=== PATIENT | female | born 1960 | race Hispanic/Latino ===

== ENCOUNTER 2018-01-02 22:20 | Emergency (ER) | payer OTHER ==
[~2018-01-02] VITALS: Ht 160 cm; Wt 100.7 kg
[~2018-01-02 22:20] MED LIST: BYSTOLIC5 MG PO
--- OUTSIDE RECORDS SUMMARY | 2018-01-02 22:23 | XMS REPORT ---
[facility] Address Unknown Phone Unavailable Care Team Providers Care Wagon Driver Name Role Phone Jim IRENEDaniela Unavailable Unavailable REGINA, ABDON Unavailable Unavailable Problems This patient has no known problems. Allergies, Adverse Reactions, Alerts This patient has no known allergies or adverse reactions. Medications This patient has no known medications. Results Test Description Test Time Test Comments Text Results Atomic Results Result Comments CT BRAIN WO [place] [address] Patient Name: SO HATCH MR #: [id number] : 1960 Age/Sex: 56/F Req #: [id number] Adm Physician: Ordered by: CAIT TALBERT MD Report #: [id number] Location: ER Room/Bed: Procedure: [id number] CT/CT BRAIN WO Exam Date: 01/07/17 Exam Time: 1999 REPORT STATUS: Signed History: Dizziness Comparison studies: None Technique: Axial images were obtained from the skull base to the vertex. Coronal and sagittal reconstructions obtained from the axial data. Findings: Scalp/skull: No abnormalities. No fractures, blastic or lytic lesions. Extra-axial spaces: No masses. No fluid collections. Brain sulci: Appropriate for age. Ventricles: Normal in size and configuration. No hydrocephalus. Parenchyma: No abnormal densities. No masses, hemorrhage, acute or chronic cortical vascular insults. Sellar/suprasellar region: No abnormalities Craniocervical junction: Patent foramen magnum. No Chiari one malformation. IMPRESSION: No abnormalities . Signed by: DR Marquise Morrissey M.D. on 01/07/2017 8:30 PM Dictated By: MARQUISE ENGLISH MD 29 Transcribed By: LEONIDAS on 01/07/172029 COPY TO: CAIT TALBERT MD CHEST SINGLE (PORTABLE) [place] [address] Patient Name: SO HATCH MR #: [id number] : 1960 Age/Sex: 56/F Req #: [id number] Adm Physician: Ordered by: CAIT TALBERT MD Report #: [id number] Location: ER Room/Bed: Procedure: [id number] DX/CHEST SINGLE (PORTABLE) Exam Date: 01/07/17 Exam Time: 1999 REPORT STATUS: Signed EXAM: CHEST SINGLE (PORTABLE), AP 1 view DATE: 01/07/2017 7:21 PM Time stamp on exam: 1834 hours INDICATION: Shortness of breath, dizziness COMPARISON: AP view of the chest August 05, 2013 FINDINGS: LINES/TUBES: None LUNGS: No consolidations or edema. PLEURA: No effusions or pneumothorax. HEART AND MEDIASTINUM: Normal size and contour. BONES AND SOFT TISSUES: No acute findings. IMPRESSION: No acute thoracic abnormality. Signed by: Dr. Chioma Corral M.D. on 01/07/2017 8:04 PM Dictated By: CHIOMA CORRAL MD 03 Transcribed By: LEONIDAS on 01/07/172003 COPY TO: CAIT TALBERT MD BONE DXA DUAL ENERGY [place] [address] Patient Name: SO HATCH MR #: [id number] : 1960 Age/Sex: 56/F Req #: [id number] Adm Physician: Ordered by: ABDON TAPIA MD Report #: [id number] Location: [facility] Room/Bed: Procedure: [id number] DX/BONE DXA DUAL ENERGY Exam Date: Exam Time: REPORT STATUS: Signed EXAM: DXA BONE DENSITY INDICATIONS: Postmenopausal COMPARISON: None. FINDINGS: Proximal left femur bone mineral density (BMD) (g/cm2): 0.887 Femur T-score (standard deviation relative to young adult mean BMD): -0.6 Femur Z-score (standard deviation relative to age-matched control group): 0.3 Proximal left femur bone mineral density (BMD) (g/cm2): 0.737 Femur T-score (standard deviation relative to young adult mean BMD): -1.2 Femur Z-score (standard deviation relative to age-matched control group): 0.0 Lumbar bone mineral density (BMD) (g/cm2): 0.925 Lumbar T-score (standard deviation relative to young adult mean BMD): -1.1 Lumbar Z- score (standard deviation relative to age-matched control group): 0.1 Change since prior exam (%): Femur: Not applicable. Spine: Not applicable. Change since oldest prior exam (%): Femur: Not applicable. Spine: Not applicable. CONCLUSION: 1. Bone mineral density in the left femur is classified as osteopenia. Fracture risk is increased. 2. Bone mineral density in the spine is classified as osteopenia. Fracture risk is increased. World Health Organization Classification: *The Z-score is provided for informational purposes. The T-score is preferable for clinical decisions. When comparing exams, a change of >4% is considered statistically significant. SUGGESTED RECOMMENDATIONS: Normal T Osteopenia: Consideration should be given to use of calcium supplementation, daily multiple vitamins and adequate exercise, as preventive measures against osteoporosis, if clinically indicated. Osteoporosis T Severe Osteoporosis: In addition to the above, consideration should be given to medical therapy against osteoporosis, if clinically indicated. Jose Tobias M.D. Dictated by: Jose Tobias M.D. on 12/20/2016 at 17:58 Electronically approved by: Jose Tobias M.D. on 12/20/2016 at 17:58 Dictated By: JOSE TOBIAS MD 57 Transcribed By: WOLFGANG on 12/20/161757 COPY TO: ABDON TAPIA MD MAMMOGRAPHY DIGITAL SCR BILAT [place] [address] Patient Name: SO HATCH MR #: [id number] : 1960 Age/Sex: 56/F Req #: [id number] [facility] Physician: Ordered by: ABDON TAPIA MD Report #: [id number] [facility] Room[facility]Bed: Procedure: [id number] MG/MAMMOGRAPHY DIGITAL SCR BILAT Exam Date: 12/20/16 Exam Time: 1611 REPORT STATUS: Signed #[id number] - MGSCRBIL #BILATERAL DIGITAL SCREENING MAMMOGRAM WITH CAD: 12/20/2016 CLINICAL: Routine screening. Comparison is made to exams dated: 12/13/2015 mammogram, 09/30/2014 mammogram and 05/08/2013 mammogram - [facility]. The tissue of both breasts is predominantly fatty. Current study was also evaluated with a Computer Aided Detection (CAD) system. There are benign calcifications in both breasts. There also is a benign intramammary node in the right breast. Additionally there are benign nodules in the left breast. No significant masses, calcifications, or other findings are seen in either breast. There has been no significant interval change. IMPRESSION: BENIGN There is no mammographic evidence of malignancy. A 1 year screening mammogram is re commended. The patient will be notified by letter of the results. Magdi flores/naga:12/26/2016 11:57:02 Marklogic Developer: Geno BURCH(R)(M), [facility] letter sent: Compared to Prior B9 Mammogram BI-RADS: 2 Benign Dictated By: MAGDI FUNK DO 1157 Transcribed By: NAGA on 12/26/16 1157 COPY TO: ABDON TAPIA MD
== END 2018-01-02 22:57 | disposition left against medical advice (07) ==
LOC: ER 22:20
DX: R09.89 Other specified symptoms and signs involving the circulatory and respiratory systems (principal)
CPT/HCPCS: 99281

== ENCOUNTER → 2018-03-15 | Outpatient (CLI) | payer OTHER ==
--- NOTE | 2018-03-21 09:11 | Diagnostic Imaging Report ---
#[id number] - MGSCRBIL #BILATERAL DIGITAL SCREENING MAMMOGRAM WITH CAD: 03/15/2018 CLINICAL: Routine screening. Comparison is made to exam dated: 12/20/2016 mammogram - [facility]. Current study contains 5 films. The tissue of both breasts is predominantly fatty. Current study was also evaluated with a Computer Aided Detection (CAD) system. There are benign calcifications in both breasts. No significant masses, calcifications, or other findings are seen in either breast. There has been no significant interval change. IMPRESSION: BENIGN There is no mammographic evidence of malignancy. A 1 year screening mammogram is recommended. The patient will be notified by letter of the results. Magdi flores/naga:03/20/2018 13:14:48 Nurse Instructor: Geno BURCH(Tab)(M), [facility] letter sent: Compared to Prior B9 Mammogram BI-RADS: 2 Benign
== END ==
LOC: MAMMO 10:39
PROVIDERS: ATTEND Obstetrics & Gynecology
DX: Z12.31 Encounter for screening mammogram for malignant neoplasm of breast (principal)
CPT/HCPCS: 77067

== ENCOUNTER → 2019-03-06 | Outpatient (CLI) | payer OTHER ==
--- NOTE | 2019-03-21 10:03 | Diagnostic Imaging Report ---
#[id number] - MGSCRBIL #BILATERAL DIGITAL SCREENING MAMMOGRAM WITH CAD: 03/06/2019 CLINICAL: Routine screening. Comparison is made to exams dated: 03/15/2018 mammogram, 12/20/2016 mammogram, 09/30/2014 mammogram, 05/08/2013 mammogram, 05/07/2012 mammogram and 12/13/2015 mammogram - [facility]. The tissue of both breasts is predominantly fatty. Current study was also evaluated with a Computer Aided Detection (CAD) system. There are benign calcifications in both breasts. There also are benign lymph nodes in both breasts. No significant masses, calcifications, or other findings are seen in either breast. There has been no significant interval change. IMPRESSION: BENIGN There is no mammographic evidence of malignancy. A 1 year screening mammogram is recommended. The patient will be notified by letter of the results. DIMITRI luciano/naga:03/20/2019 13:12:20 Street Cleaning Equipment Operator: Geno BURCH(Tab)(M), [facility] letter sent: Compared to Prior B9 Mammogram BI-RADS: 2 Benign
== END ==
LOC: MAMMO 10:17
PROVIDERS: ATTEND Obstetrics & Gynecology
DX: Z12.31 Encounter for screening mammogram for malignant neoplasm of breast (principal)
CPT/HCPCS: 77067

== ENCOUNTER → 2020-04-15 | Outpatient (CLI) | payer BC | LOC: MAMMO 14:05 | PROVIDERS: ATTEND Obstetrics & Gynecology | DX: Z12.31 Encounter for screening mammogram for malignant neoplasm of breast (principal); Z13.820 Encounter for screening for osteoporosis; M85.88 Other specified disorders of bone density and structure, other site | CPT/HCPCS: 77067; 77080 ==

== ENCOUNTER → 2021-09-16 | Outpatient (CLI) | payer BC | LOC: MAMMO 09:58 | PROVIDERS: ATTEND Family Medicine | DX: Z12.31 Encounter for screening mammogram for malignant neoplasm of breast (principal); M85.88 Other specified disorders of bone density and structure, other site | CPT/HCPCS: 77067; 77080 ==

== ENCOUNTER 2022-08-28 05:54 | Observation (INO) | payer BC ==
[~2022-08-28] VITALS: Ht 160 cm; Wt 94.3 kg
[2022-08-28 06:34] LABS: BASOPHILS % 0.4 % (0.0-1.0); EOSINOPHILS # (AUTO) 0.1 (0.0-0.4); EOSINOPHILS % 1.3 % (0.0-6.0); HEMATOCRIT 40.6 % (34.2-44.1); HEMOGLOBIN 13.6 g/dL (12.0-16.0); LYMPHOCYTES # (AUTO) 1.9 (1.0-3.2); LYMPHOCYTES % 26.9 % (18.0-39.1); MEAN CORPUSCULAR HEMOGLOBIN 29.2 pg (28-32); MEAN CORPUSCULAR HGB CONC 33.5 g/dL (31-35); MEAN CORPUSCULAR VOLUME 87.3 fL (81-99); MONOCYTES # (AUTO) 0.4 (0.2-0.8); MONOCYTES % 5.5 % (4.4-11.3); NEUTROPHILS # (AUTO) 4.5 (2.1-6.9); NEUTROPHILS % 65.5 % (38.7-80.0); PLATELET COUNT 204 x10e3/uL (140-360); RED BLOOD COUNT 4.65 x10e6/uL (3.6-5.1); RED CELL DISTRIBUTION WIDTH 13.2 % (11.7-14.4)
[2022-08-28 06:43] LABS: AMPHETAMINES SCREEN,URINE NEGATIVE (NEGATIVE); BENZODIAZEPINES SCREEN,URINE POSITIVE (NEGATIVE); PHENCYCLIDINE SCREEN,URINE NEGATIVE (NEGATIVE)
[2022-08-28 07:10] LABS: ALBUMIN 3.8 g/dL (3.5-5.0); ALBUMIN/GLOBULIN RATIO 1.2 (0.8-2.0); ANION GAP 11.9 mmol/L (8-16); CALCIUM 8.8 mg/dL (8.4-10.2); CREATININE, SERUM 0.66 mg/dL (0.57-1.11); POTASSIUM 3.9 mmol/L (3.5-5.1)
[2022-08-28] MEDS ORDERED: ONDANSETRON HCL INJ 2MG/ML 2ML 2 MG/ML VIAL IV PRN (08:00)
[2022-08-28] MEDS: ASPIRIN 81 MG ENTERIC COATED PO SCH (08:45)
[2022-08-28] MEDS: FAMOTIDINE 20 MG/2 ML VIAL IV SCH ×2 (08:46→20:46)
[2022-08-28 08:47] LABS: CHOL/HDL RATIO 4.3 (3.0-3.6)
[2022-08-28] MEDS: POLYETHYLENE GLYCOL 3350 17 GM PACK PO SCH (09:45)
[2022-08-28] MEDS: NITROFURANTOIN MACROCRYSTALS 100 MG CAP PO SCH ×2 (10:08→17:53)
[2022-08-28] MEDS ORDERED: Morphine 4mg INJECTION 4 MG/ML INJ IV ONE (15:45)
[2022-08-28 19:23] VITALS: BP 151/90; PULSE 62; RESP 20; TEMP 97.7; O2SAT 99
[2022-08-28] MEDS ORDERED: METOPROLOL SUCC25 MG PO (19:42)
[2022-08-28] MEDS ORDERED: NITROFURANTOIN100 M1 PO (19:48)
[2022-08-28] MEDS ORDERED: GEMTESA75 MG PO (19:48)
[2022-08-28 20:13] VITALS: BP 151/90; PULSE 62; RESP 20; TEMP 97.7; O2SAT 99
[2022-08-28 20:35] VITALS: BP 151/90; PULSE 60; RESP 17; TEMP 97.7; O2SAT 99
[2022-08-28] MEDS ORDERED: CRESTOR 10MG PO SCH (21:00)
[2022-08-28] MEDS ORDERED: Morphine 2mg Syringe 2 MG/ML SYR IV PRN (21:30)
[2022-08-29] VITALS (19 sets, daily range): BP systolic 99–156; BP diastolic 68–98; PULSE 55–76; RESP 14–20; TEMP 97.3–98.3; O2SAT 95–99
[2022-08-29] MEDS: ACETAMINOPHEN 325 MG TAB PO PRN ×3 (03:50→16:15)
[2022-08-29 05:03] LABS: BASOPHILS % 0.4 % (0.0-1.0); EOSINOPHILS # (AUTO) 0.1 (0.0-0.4); EOSINOPHILS % 1.6 % (0.0-6.0); HEMATOCRIT 41.6 % (34.2-44.1); HEMOGLOBIN 13.7 g/dL (12.0-16.0); LYMPHOCYTES # (AUTO) 1.7 (1.0-3.2); LYMPHOCYTES % 23.4 % (18.0-39.1); MEAN CORPUSCULAR HGB CONC 32.9 g/dL (31-35); MEAN CORPUSCULAR VOLUME 87.9 fL (81-99); MONOCYTES # (AUTO) 0.5 (0.2-0.8); MONOCYTES % 6.2 % (4.4-11.3); PLATELET COUNT 193 x10e3/uL (140-360); RED BLOOD COUNT 4.73 x10e6/uL (3.6-5.1); RED CELL DISTRIBUTION WIDTH 13.1 % (11.7-14.4)
[2022-08-29 05:35] LABS: ALBUMIN 3.5 g/dL (3.5-5.0); ALBUMIN/GLOBULIN RATIO 1.3 (0.8-2.0); ANION GAP 12.8 mmol/L (8-16); CALCIUM 8.8 mg/dL (8.4-10.2); CREATININE, SERUM 0.64 mg/dL (0.57-1.11); POTASSIUM 3.8 mmol/L (3.5-5.1)
[2022-08-29] MEDS: ASPIRIN 81 MG ENTERIC COATED PO SCH (08:41)
[2022-08-29] MEDS: FAMOTIDINE 20 MG/2 ML VIAL IV SCH (08:43)
[2022-08-29] MEDS: POLYETHYLENE GLYCOL 3350 17 GM PACK PO SCH (08:54)
[2022-08-29] MEDS: NITROFURANTOIN MACROCRYSTALS 100 MG CAP PO SCH ×2 (08:54→17:08)
[2022-08-29] MEDS ORDERED: METOPROLOL SUCCINATE 25 MG TAB XL PO SCH (09:00)
[2022-08-29] MEDS ORDERED: HEPARIN SOD/SOD CHLORIDE 2,000 ML ONE (12:18)
[2022-08-29] MEDS ORDERED: LIDOCAINE HCL 2% LOCAL 20 ML VIAL ONE (12:18)
[2022-08-29] MEDS ORDERED: HEPARIN SOD (PORCINE) 1000 UNIT/ML 30ML ONE (12:18)
[2022-08-29] MEDS ORDERED: SODIUM CHLORIDE 0.9% 1000ML 1,000 ML ONE (12:19)
[2022-08-29] MEDS ORDERED: IOPAMIDOL 370 MG/ML 100 ML INFUS..BTL INJ ONE (12:19)
[2022-08-29] MEDS ORDERED: NITROGLYCERIN/D5W 200 MCG/ML 250 ML ONE (12:19)
[2022-08-29] MEDS ORDERED: VERAPAMIL HCL 2.5 MG/ML 2 ML VIAL ONE (12:28)
[2022-08-29] MEDS ORDERED: FENTANYL CITRATE/PF 100MCG/2 ML INJ ONE (12:29)
[2022-08-29] MEDS ORDERED: MIDAZOLAM HCL 2 MG/2 ML VIAL ONE (12:29)
[2022-08-29] MEDS ORDERED: AMLODIPINE BESYL5 MG PO (13:19)
[2022-08-29] MEDS ORDERED: OMEPRAZOLE40 MG PO (13:19)
[2022-08-29] MEDS ORDERED: ATORVASTATIN CA20 MG PO (13:19)
[2022-08-29] MEDS ORDERED: ONDANSETRON HCL 4 MG ORAL DISINTEGRATING TAB PO PRN (17:30)
[2022-08-29] MEDS ORDERED: FAMOTIDINE 20 MG TAB PO SCH (21:00)
== END 2022-08-29 18:35 | disposition home or self-care (01) ==
LOC: ER 05:59 → ERHOLD 07:59 → MED/SURG 18:53 → OBSVTOIN 08-29 09:00 → INTOOBSV 08-29 09:00
PROVIDERS: ADMIT Internal Medicine; ATTEND Internal Medicine
DX: I20.0 Unstable angina (principal); E78.5 Hyperlipidemia, unspecified; I10 Essential (primary) hypertension; I47.1 Supraventricular tachycardia; E66.09 Other obesity due to excess calories; N32.81 Overactive bladder; N39.0 Urinary tract infection, site not specified; I77.1 Stricture of artery; I07.1 Rheumatic tricuspid insufficiency; I34.0 Nonrheumatic mitral (valve) insufficiency; Z88.0 Allergy status to penicillin; Z20.822 Contact with and (suspected) exposure to COVID-19; Z79.899 Other long term (current) drug therapy; Z79.82 Long term (current) use of aspirin; Z68.39 Body mass index [BMI] 39.0-39.9, adult; Z82.49 Family history of ischemic heart disease and other diseases of the circulatory system
CPT/HCPCS: 0223U; 36415 ×2; 71045; 80053 ×2; 80061; 80307; 82550 ×2; 83690; 83880; 84484 ×2; 85025 ×2; 85379; 93005; 93306; 93458; 99284; C1887; G0378 ×2; J1644; J2001; J2250; J3010; J7030; Q9967; 99152; 99153; J2270; J2405

== ENCOUNTER → 2022-09-18 | Outpatient (CLI) | payer BC ==
[~2022-09-18] MED LIST changes: +AMLODIPINE BESYL5 MG PO; +ATORVASTATIN CA20 MG PO; +GEMTESA75 MG PO; +METOPROLOL SUCC25 MG PO; +NITROFURANTOIN100 M1 PO; +OMEPRAZOLE40 MG PO
== END ==
LOC: MAMMO 12:52
PROVIDERS: ATTEND Obstetrics & Gynecology
DX: Z12.31 Encounter for screening mammogram for malignant neoplasm of breast (principal)
CPT/HCPCS: 77067

== ENCOUNTER → 2023-11-22 | Outpatient (REF) | payer BC ==
[~2023-11-22] MED LIST changes: +VITAMIN D250 MCG PO
== END ==
LOC: MAMMO 15:58
PROVIDERS: ATTEND Obstetrics & Gynecology
DX: Z12.31 Encounter for screening mammogram for malignant neoplasm of breast (principal)
CPT/HCPCS: 77067

== ENCOUNTER 2023-12-31 15:26 | Emergency (ER) | payer BC ==
[~2023-12-31] VITALS: Ht 160 cm; Wt 94.3 kg
[2023-12-31 15:51] VITALS: PULSE 70; RESP 17; TEMP 98.2; O2SAT 100
== END 2023-12-31 16:49 | disposition home or self-care (01) ==
LOC: ER 15:40
DX: H11.31 Conjunctival hemorrhage, right eye (principal); I10 Essential (primary) hypertension; I47.10 Supraventricular tachycardia, unspecified
CPT/HCPCS: 99282

== ENCOUNTER → 2024-02-20 | Outpatient (REF) | payer BC | LOC: DX 15:49 | PROVIDERS: ATTEND Family Medicine | DX: M85.88 Other specified disorders of bone density and structure, other site (principal) | CPT/HCPCS: 77080 ==

== ENCOUNTER → 2024-11-06 | Outpatient (REF) | payer MEDICARE | LOC: US 07:31 | PROVIDERS: ATTEND Nurse Practitioner | DX: K76.0 Fatty (change of) liver, not elsewhere classified (principal) | CPT/HCPCS: 76700 ==

== ENCOUNTER → 2024-11-24 | Outpatient (REF) | payer MEDICARE | LOC: MAMMO 16:06 | PROVIDERS: ATTEND Family Medicine | DX: Z12.31 Encounter for screening mammogram for malignant neoplasm of breast (principal) | CPT/HCPCS: 77067 ==